=== PATIENT | male | born 2000 | race Caucasian/White ===

== ENCOUNTER → 2024-02-02 | Outpatient (CLI) | payer BC, OTHER ==
[2024-02-03 05:04] LABS: Gliadin AB IgA, Deaminated Negative (Negative); Gliadin AB IgA, Unit 0.6 U/mL; Gliadin AB IgG, Deaminated Negative (Negative); Gliadin AB IgG, Unit <0.4 U/mL
[2024-02-03 05:18] LABS: Egg White IgE <0.10 kU/L; Peanut IgE <0.10 kU/L; Shrimp IgE <0.10 kU/L; Soybean IgE <0.10 kU/L; Walnut IgE (Food) <0.10 kU/L
[2024-02-03 13:45] LABS: Egg Yolk IgE Class CLASS 0
== END | disposition home or self-care (01) ==
LOC: LABWHC1 16:20
PROVIDERS: ATTEND Nurse Practitioner Adult Health
DX: Z20.9 Contact with and (suspected) exposure to unspecified communicable disease (principal); Z91.018 Allergy to other foods
CPT/HCPCS: 36415; 82785; 83516; 86003; 87338

== ENCOUNTER 2024-02-03 19:07 | Emergency (ER) | payer BC, OTHER ==
--- NOTE | 2024-02-03 20:11 | ED ---
General Adult HPI - General Source: patient, RN notes reviewed Mode of arrival: ambulatory Limitations: no limitations <Angella Martell - Last Filed: 02/03/24 20:08> - General Source: RN notes reviewed <Hayley Oliver - Last Filed: 02/03/24 22:00> - General Chief complaint: Headache Stated complaint: Blurred vision, numbness, weakness, headache Time Seen by Provider: 02/03/24 20:08 - History of Present Illness Initial comments: Quick note: 23 year old male presents to the emergency department for evaluation of headache on right side of head after a strenuous workout. Patient reports that he was doing heavy lifting, after he stopped he experienced a sudden headache on the right side of his head. He states that he started feeling weak following this. He does report that his symptoms seem to be improving somewhat but he does feel somewhat weak still. Denies any significant past medical history. (Angella Martell) 23-year-old male with no significant past medical history presenting to the ER chief complaint of headache x 4 hours ago. States he was doing a strenuous workout lifting weights when he suddenly experienced a right-sided headache with generalized weakness. He reports he did have some hearing loss when this initially occurred but has since resolved. He states his symptoms are improving. Denies blood thinners. This is never happened before. Denies vision changes. (Hayley Oliver) - Related Data Allergies Allergy/AdvReac Type Severity Reaction Status Date / Time No Known Allergies Allergy Verified 02/03/24 19:13 Review of Systems ROS Other: All systems not noted in ROS Statement are negative. <Angella Martell - Last Filed: 02/03/24 20:08> ROS Other: All systems not noted in ROS Statement are negative. <Hayley Oliver - Last Filed: 02/03/24 22:00> ROS Statement: Those systems with pertinent positive or pertinent negative responses have been documented in the HPI. Past Medical History Past Medical History: No Reported History History of Any Multi-Drug Resistant Organisms: None Reported Past Surgical History: No Surgical Hx Reported Past Psychological History: No Psychological Hx Reported Smoking Status: Never smoker Past Alcohol Use History: Rare Past Drug Use History: None Reported <Angella Martell - Last Filed: 02/03/24 20:08> General Exam Limitations: no limitations <Angella Martell - Last Filed: 02/03/24 20:08> General appearance: alert, in no apparent distress Head exam: Present: atraumatic, normocephalic, normal inspection Eye exam: Present: normal appearance, PERRL, EOMI. Absent: scleral icterus, conjunctival injection, periorbital swelling ENT exam: Present: normal exam, mucous membranes moist Neck exam: Present: normal inspection. Absent: tenderness, meningismus, lymphadenopathy Respiratory exam: Present: normal lung sounds bilaterally. Absent: respiratory distress, wheezes, rales, rhonchi, stridor Cardiovascular Exam: Present: regular rate, normal rhythm, normal heart sounds. Absent: systolic murmur, diastolic murmur, rubs, gallop, clicks GI/Abdominal exam: Present: soft, normal bowel sounds. Absent: distended, tenderness, guarding, rebound, rigid Extremities exam: Present: normal inspection, full ROM, normal capillary refill. Absent: tenderness, pedal edema, joint swelling, calf tenderness Neurological exam: Present: alert, oriented X3, CN II-XII intact Psychiatric exam: Present: normal affect, normal mood Skin exam: Present: warm, dry, intact, normal color. Absent: rash <Hayley Oliver - Last Filed: 02/03/24 22:00> - General Exam Comments Initial Comments: Visual Physical Exam Vital signs reviewed General: Well-appearing, nontoxic, no acute distress. Head: Normocephalic, atraumatic Eyes: PERRLA, EOMI ENT: Airway patent Chest: Nonlabored breathing Skin: No visual rash, normal skin tone Neuro: Alert and oriented 3 Musculoskeletal: No gross abnormalities (Angella Martell) Course Vital Signs 02/03/24 02/03/24 19:11 21:13 Temperature 98 F Pulse Rate 78 54 L Respiratory 18 16 Rate Blood Pressure 153/79 121/71 O2 Sat by Pulse 99 100 Oximetry EKG Findings - EKG Results: EKG: interpreted by ERMD (EKG reveals normal sinus rhythm with no ST changes. Ventricular rate 68 bpm, LA interval 207, QRS duration 108, QT/QTc 387/404.) <Hayley Oliver - Last Filed: 02/03/24 22:00> Medical Decision Making <Angella Martell - Last Filed: 02/03/24 20:08> <Hayley Oliver - Last Filed: 02/03/24 22:00> - Medical Decision Making Quick note preformed and electronically signed by JOSEE Thorne-Viet (Angella Martell) Was pt. sent in by a medical professional or institution (JOSEE Bueno, CREDIT COLLECTIONS SPECIALIST, urgent care, hospital, or snf...) When possible be specific @ -No Did you speak to anyone other than the patient for history (EMS, parent, family, police, friend...)? What history was obtained from this source @ -Patient's mother supplemented history Did you review nursing and triage notes (agree or disagree)? Why? @ -I reviewed and agree with nursing and triage notes Were old charts reviewed (outside hosp., previous admission, EMS record, old EKG, old radiological studies, urgent care reports/EKG's, snf records)? Report findings @ -No old charts were reviewed Differential Diagnosis (chest pain, altered mental status, abdominal pain women, abdominal pain men, vaginal bleeding, weakness, fever, dyspnea, syncope, headache, dizziness, GI bleed, back pain, seizure, CVA, palpatations, mental health, musculoskeletal)? @ -Differential Headache: Migraine, tension, cluster, carbon monoxide, central venous thrombosis, pension karma temporal arteritis, acute closure glaucoma, intercranial hemorrhage, mastoiditis, sinusitis, head injury, this is not meant to be an all-inclusive list. EKG interpreted by me (3pts min.). @ -As above X-rays interpreted by me (1pt min.). @ -None done CT interpreted by me (1pt min.). @ -CT of brain revealed no acute intracranial hemorrhage, mass, defect, or midline shift U/S interpreted by me (1pt. min.). @ -None done What testing was considered but not performed or refused? (CT, X-rays, U/S, labs)? Why? @ -None What meds were considered but not given or refused? Why? @ -Patient declined pain meds as he states he is feeling better Did you discuss the management of the patient with other professionals (professionals i.e. JOSEE Bueno, CREDIT COLLECTIONS SPECIALIST, lab, RT, psych nurse, social media specialist, wastewater superintendent, teacher, field health officer, comp field case manager)? Give summary @ -No Was smoking cessation discussed for >3mins.? @ -No Was critical care preformed (if so, how long)? @ -No Were there social determinants of health that impacted care today? How? (Ho melessness, low income, unemployed, alcoholism, drug addiction, transportation, low edu. Level, literacy, decrease access to med. care, care home, rehab)? @ -No Was there de-escalation of care discussed even if they declined (Discuss DNR or withdrawal of care, Hospice)? DNR status @ -No What co-morbidities impacted this encounter? (DM, HTN, Smoking, COPD, CAD, Cancer, CVA, ARF, Chemo, Hep., AIDS, mental health diagnosis, sleep apnea, morbid obesity)? @ -None Was patient admitted / discharged? Hospital course, mention meds given and route, prescriptions, significant lab abnormalities, going to OR and other pertinent info. @ -Patient was discharged. Patient was seen and evaluated for headache x 4 hours. Patient was doing heavy lifting when he experienced a sudden onset headache. Patient reports symptoms are improving. No red flag symptoms. The neuroexam is unremarkable. CT revealed no acute intracranial hemorrhage, mass, effect, or midline shift. Patient declined any pain medication. Discussed there are no signs of emergent etiology upon examination today. Strict return parameters discussed with patient and mother and they show understanding and agree to plan. Advise close follow-up with PCP. Case was discussed with my ED attending Dr. Bowles. Patient discharged in stable condition. Undiagnosed new problem with uncertain prognosis? @ -No Drug Therapy requiring intensive monitoring for toxicity (Heparin, Nitro, Insulin, Cardizem)? @ -No Were any procedures done? @ -No Diagnosis/symptom? @ -Headache Acute, or Chronic, or Acute on Chronic? @ -Acute Uncomplicated (without systemic symptoms) or Complicated (systemic symptoms)? @ -Uncomplicated Side effects of treatment? @ -No Exacerbation, Progression, or Severe Exacerbation? @ -No Poses a threat to life or bodily function? How? (Chest pain, USA, LA, pneumonia, PE, COPD, DKA, ARF, appy, cholecystitis, CVA, Diverticulitis, Homicidal, Suicidal, threat to staff... and all critical care pts) @ -Low likelihood (Hayley Oliver) Disposition <Angella Martell - Last Filed: 02/03/24 20:08> Is patient prescribed a controlled substance at d/c from ED?: No Time of Disposition: 22:00 <Hayley Oliver - Last Filed: 02/03/24 22:00> Clinical Impression: Headache, acute Disposition: HOME SELF-CARE Condition: Stable Instructions (If sedation given, give patient instructions): Acute Headache (ED) Additional Instructions: Please return to the Emergency Department if symptoms worsen or any other concerns. I think Referrals: Baljeet Benjamin MD [Primary Care Provider] - 1-2 days
--- NOTE | 2024-02-03 20:55 | CT ---
EXAMINATION TYPE: CT brain wo con DATE OF EXAM: 02/03/2024 COMPARISON: None HISTORY: [place], Bilateral leg numbness, blurred vision and dizziness after liftng heavy weights today. CT DLP: 1125.4 mGycm. Automated Exposure Control for Dose Reduction was Utilized. TECHNIQUE: CT scan of the head is performed without contrast. FINDINGS: There is no acute intracranial hemorrhage, mass effect, or midline shift identified. The ventricles and sulci are within normal limits in size. The globes are intact and the visualized sin uses are clear. IMPRESSION: No acute intracranial hemorrhage, mass effect, or midline shift is seen.
[2024-02-03 21:37] VITALS: RESP 16
[2024-02-03 22:27] VITALS: BP 106/70; PULSE 59; TEMP 98.1
== END 2024-02-03 22:26 | disposition home or self-care (01) ==
LOC: EC 19:07
DX: R51.9 Headache, unspecified (principal); R53.1 Weakness; R20.2 Paresthesia of skin; H53.10 Unspecified subjective visual disturbances; X50.0XXA Overexertion from strenuous movement or load, initial encounter
CPT/HCPCS: 70450; 93005; 99284